=== PATIENT | female | born 1985 | race Two or more races ===

== ENCOUNTER 2016-10-31 03:17 | Emergency (ER) | payer SELFPAY ==
[~2016-10-31] VITALS: Ht 160 cm; Wt 56.2 kg
[2016-10-31] MEDS ORDERED: KEFLEX750 MG PO (03:31)
[2016-10-31 04:01] VITALS: BP 94/54
[2016-10-31 04:12] LABS: BASOPHILS % (AUTO) 1.3 % (0.0-2.0); EOSINOPHILS % (AUTO) 2.6 % (0.0-3.0); LYMPHOCYTES % (AUTO) 30.5 % (20.0-45.0); MEAN CORPUSCULAR HEMOGLOBIN 30.2 PG (27.0-31.0); MEAN CORPUSCULAR HGB CONC 34.2 G/DL (32.0-36.0); MEAN CORPUSCULAR VOLUME 88 FL (80-99); MONOCYTES % (AUTO) 4.8 % (1.0-10.0); NEUTROPHILS % (AUTO) 60.8 % (45.0-75.0); PLATELET COUNT 216 K/UL (150-450); RED BLOOD COUNT 3.87 M/UL (4.20-5.40); RED CELL DISTRIBUTION WIDTH 11.9 % (11.6-14.8); WHITE BLOOD COUNT 6.3 K/UL (4.8-10.8)
[2016-10-31 04:12] LABS: APPEARANCE,URINE CLEAR; KETONES,URINE NEGATIVE (NEGATIVE); LEUKOCYTE ESTERASE ,URINE 2+ (NEGATIVE); NITRITE,URINE NEGATIVE (NEGATIVE); PH,URINE 8 (4.5-8.0); PROTEIN,URINE NEGATIVE (NEGATIVE); UROBILINOGEN,URINE NORMAL MG/DL (0.0-1.0)
[2016-10-31 04:32] LABS: PROTHROMBIN TIME 9.7 SEC (9.30-11.50)
[2016-10-31 04:36] LABS: ALANINE AMINOTRANSFERASE 18 U/L (3-33); ALBUMIN/GLOBULIN RATIO 1.2 (1.0-2.7); ANION GAP 12 (5-15); ASPARTATE AMINO TRANSFERASE 17 U/L (5-40); CALCIUM 9.7 mg/dL (8.6-10.2); CARBON DIOXIDE 28 mEQ/L (20-30); CHLORIDE 98 mEQ/L (98-107); CREATININE 0.4 mg/dL (0.5-0.9); GLOMERULAR FILTRATION RATE > 60 mL/min (>60); HEMOLYSIS 1; POTASSIUM 3.6 mEQ/L (3.4-4.9); SODIUM 138 mEQ/L (135-145); TOTAL PROTEIN 7.1 g/dL (6.6-8.7)
[2016-10-31 04:37] LABS: BACTERIA,URINE FEW /HPF; RBC,URINE 0-2 /HPF (0 - 2); SQUAMOUS EPITHELIAL CELL,UR MODERATE /LPF (NONE/OCC)
[2016-10-31 05:10] LABS: TROPONIN I < 0.30 ng/mL (<=0.30)
--- NOTE | 2016-10-31 05:30 | Emergency Room Report ---
History of Present Illness General Chief Complaint: Palpitations Source: Patient, Significant Other Present Illness HPI The patient was awakened with dyspnea palpitations and shortness of breath. This has gradually gotten better. She had breast augmentation surgery on Tuesday. She spoke with her who said to come to the hospital make sure she does not have a blood clot. She denies any swelling or pain in her calves or lower legs. She's never had clots before. The breast pain has been better after the operation and she did not take any of her pain medication today. She denies any fevers. No NVD, DE JESUS, rashes. feels this is related to anxiety. 4 children at home. Allergies: Coded Allergies: No Known Allergies (Unverified , 10/31/16) Patient History Past Medical History: see triage record Past Surgical History: other - breast augmentation Social History: Denies: smoking Social History Narrative 4 kids at home Last Menstrual Period: Oct Now: No : 5 Para: 4 Reviewed Nursing Documentation: PMH: Agreed, PSxH: Agreed Review of Systems All Other Systems: negative except mentioned in HPI Physical Exam Vital Signs Date Time Temp Pulse Resp B/P Pulse Ox O2 Delivery O2 Flow Rate FiO2 10/31/16 03:19 97.0 80 18 92/58 99 Room Air Sp02 EP Interpretation: reviewed, normal General Appearance: well appearing, no apparent distress, GCS 15 Head: normocephalic Eyes: bilateral eye PERRL, bilateral eye normal inspection ENT: moist mucus membranes Neck: supple Respiratory: chest non-tender, lungs clear, normal breath sounds, other - post breast augmentation Cardiovascular #1: regular rate, rhythm Cardiovascular #2: 2+ radial (R) Gastrointestinal: normal inspection, normal bowel sounds, non tender, no mass, non-distended Musculoskeletal: back normal, gait/station normal, normal range of motion, no calf tenderness, Gallo's Sign negative Neurologic: alert, oriented x3, grossly normal Psychiatric: anxious Skin: normal inspection, warm/dry Medical Decision Making Diagnostic Impression: Primary Impression: Palpitations Additional Impression: Status post breast augmentation ER Course Patient with palpitations and dyspnea post operatively. Ddx: anxiety, PE, chest wall pain, electrolyte abnormality amongst others. Need to exclude cardiac and PE. Labs, CXR, EKG ordered with D dimer. As D dimer + need to do CTA chest. CTA chest negative for PE. Improved. Patient stable for outpatient observation and treatment. Laboratory Tests Test 10/31/16 03:38 10/31/16 03:51 10/31/16 03:52 Troponin I < 0.30 ng/mL (<=0.30) White Blood Count 6.3 K/UL (4.8-10.8) Red Blood Count 3.87 M/UL (4.20-5.40) L Hemoglobin 11.7 G/DL (12.0-16.0) L Hematocrit 34.2 % (37.0-47.0) L Mean Corpuscular Volume 88 FL (80-99) Mean Corpuscular Hemoglobin 30.2 PG (27.0-31.0) Mean Corpuscular Hemoglobin Concent 34.2 G/DL (32.0-36.0) Red Cell Distribution Width 11.9 % (11.6-14.8) Platelet Count 216 K/UL (150-450) Mean Platelet Volume 9.0 FL (6.5-10.1) Neutrophils (%) (Auto) 60.8 % (45.0-75.0) Lymphocytes (%) (Auto) 30.5 % (20.0-45.0) Monocytes (%) (Auto) 4.8 % (1.0-10.0) Eosinophils (%) (Auto) 2.6 % (0.0-3.0) Basophils (%) (Auto) 1.3 % (0.0-2.0) Prothrombin Time 9.7 SEC (9.30-11.50) Prothrombin Time INR 1.0 (0.9-1.1) PTT 26 SEC (23-33) D-Dimer 1125 ng/mL (<500) H Sodium Level 138 mEQ/L (135-145) Potassium Level 3.6 mEQ/L (3.4-4.9) Chloride Level 98 mEQ/L (98-107) Carbon Dioxide Level 28 mEQ/L (20-30) Anion Gap 12 (5-15) Blood Urea Nitrogen 8 mg/dL (7-23) Creatinine 0.4 mg/dL (0.5-0.9) L Estimate Glomerular Filtration Rate > 60 mL/min (>60) Glucose Level 93 mg/dL (74-106) Calcium Level 9.7 mg/dL (8.6-10.2) Total Bilirubin < 0.2 mg/dL (0.0-1.2) Aspartate Amino Transferase (AST) 17 U/L (5-40) Alanine Aminotransferase (ALT) 18 U/L (3-33) Alkaline Phosphatase 52 U/L (35-104) Total Creatine Kinase 70 U/L (26-140) Pro-B-Type Natriuretic Peptide 31 pg/mL (0-125) Total Protein 7.1 g/dL (6.6-8.7) Albumin 4.0 g/dL (3.5-5.2) Globulin 3.1 g/dL Albumin/Globulin Ratio 1.2 (1.0-2.7) Urine Color Pale yellow Urine Appearance Clear Urine pH 8 (4.5-8.0) Urine Specific [place] 1.010 (1.005-1.035) Urine Protein Negative (NEGATIVE) Urine Glucose (UA) Negative (NEGATIVE) Urine Ketones Negative (NEGATIVE) Urine Occult Blood Negative (NEGATIVE) Urine Nitrite Negative (NEGATIVE) Urine Bilirubin Negative (NEGATIVE) Urine Urobilinogen Normal MG/DL (0.0-1.0) Urine Leukocyte Esterase 2+ (NEGATIVE) H Urine RBC 0-2 /HPF (0 - 2) Urine WBC 5-10 /HPF (0 - 2) H Urine Squamous Epithelial Cells Moderate /LPF (NONE/OCC) H Urine Bacteria Few /HPF (NONE) Urine HCG, Qualitative Negative EKG Diagnostic Results Rate: normal Rhythm: NSR ST Segments: no acute changes Rhythm Strip Diag. Results EP Interpretation: yes Rhythm: NSR, no PVC's, no ectopy Chest X-Ray Diagnostic Results EP Interpretation: Yes Findings: no consolidation, no effusion, no pneumothorax, no acute cardiopulmonary disease Number of Views: 1 CT/MRI/US Diagnostic Results CT/MRI/US Diagnostic Results : Imaging Test Ordered: CTA chest Impression no PE, SQ air Last Vital Signs Date Time Temp Pulse Resp B/P Pulse Ox O2 Delivery O2 Flow Rate FiO2 10/31/16 06:56 97.4 75 17 94/55 99 Room Air Status: improved Disposition: HOME, SELF-CARE Condition: Improved Referrals: NON PHYSICIAN (PCP) Cortez Banda M.D. Oct 31, 2016 05:30
[2016-10-31 06:18] VITALS: BP 94/55
[2016-10-31 06:56] VITALS: BP 94/55
--- NOTE | 2016-10-31 19:40 | Cardiology Report ---
APPROVED REPORT EKG Measurement Heart [id number] Normal sinus rhythm Normal ECG
--- NOTE | 2016-11-02 15:54 | Diagnostic Imaging Report ---
Indications: Chest palpitations, dizziness, elevated d-dimer level; bilateral augmentation mammoplasty 5 days ago Technique: Continuous helical CT imaging of the thorax was performed with automatic exposure control, following bolus intravenous administration of nonionic iodine contrast, on a Siemens sensation [address] scanner. Axial images reconstructed at 3 mm slice thickness and 1.5 mm interval. Coronal and sagittal images were reconstructed at 3 mm slice thickness. Coronal and sagittal two-dimensional maximum intensity projection and three-dimensional volume-rendered images were reconstructed on a stand alone workstation. CTDI volume(s): 27 mGy Total DLP: 788 mGy-cm findings: Comparison: None The main pulmonary artery, right and left pulmonary arteries, and pulmonary artery branches to the level of third order branching are patent and well-opacified. No intraluminal filling defects are demonstrated. Thoracic aorta and great vessels are patent and well-opacified with mild scattered calcified plaquing, normal in caliber and configuration. No evidence of aneurysm, dissection, or leak. Heart is normal in size. No pericardial abnormality. No mediastinal or hilar abnormal mass, fluid or gas collection. Lungs normally, symmetrically inflated and clear aside from minimal bibasal dependent compressive changes. No pleural abnormalities. Multiple gas bubbles are present in the bilateral chest wall soft tissues, including adjacent to bilateral breast implants, latter intact. No focal skeletal abnormality. Subcentimeter circumscribed attenuation nodule upper pole cortex right kidney. Remainder of imaged upper abdominal anatomy unremarkable. IMPRESSION: No evidence of pulmonary embolism or other significant acute thoracic pathology Evidence of recent bilateral augmentation mammoplasty with expected chest wall soft tissue emphysema. Implants intact. Right renal cortical small angiomyolipoma This correlates with [facility] preliminary report.
--- NOTE | 2016-11-02 15:54 | Diagnostic Imaging Report ---
Indication: Chest pain Technique: Single portable AP view of the chest. Findings: Comparison: None. On lateral breast implants. The bones and extra pulmonary soft tissues, cardiomediastinal silhouette, pulmonary vasculature and parenchyma, and pleural surfaces otherwise unremarkable. IMPRESSION: Essentially negative portable AP chest .
== END 2016-10-31 06:50 | disposition home or self-care (01) ==
LOC: EMR 03:36
DX: R00.2 Palpitations (principal); R06.00 Dyspnea, unspecified; Z98.82 Breast implant status; D17.71 Benign lipomatous neoplasm of kidney
CPT/HCPCS: 36415; 71010; 71275; 80053; 81003; 81025; 82550; 83880; 84484; 85025; 85379; 85610; 85730; 93005; 96374; 99284; Q9967